=== PATIENT | female | born 1985 | race Caucasian/White ===

== ENCOUNTER 2022-06-22 06:00 | Day surgery (SDC) | payer OTHER ==
[~2022-06-22] VITALS: Ht 152.4 cm; Wt 50.3 kg
[2022-06-22] VITALS (439 sets, daily range): BP systolic 85–131; BP diastolic 46–91
--- NOTE | 2022-06-22 07:15 | NUR ---
PT HAS ARRIVED TO [facility]R SUITES WITH S/O. BOTH HAVE BEEN ESCORTED TO ROOM, AND EXPLAINED OF POC, ALL QUESTIONS HAVE BEEN ADDRESSED. PT IS A&OX3, PT ABLE TO FOLLOW COMMANDS AND MAKE HER NEEDS KNOWN. PT HAS BEEN ORIENTED TO ROOM, CALL LIGHT SYSTEM, AND FALL RISK PRECAUTION. PT HAS CALL LIGHT NEAR AND RN NEARBY. ATTACHED TO MONITORS, AND WILL CONTINUE TO MONITOR.
[2022-06-22 08:05] LABS: BASO% 0.5 % (0-3); EOS% 6.8 % (0-8); HEMATOCRIT 40.2 % (37.0-47.0); HEMOGLOBIN 12.9 g/dl (12.0-16.0); IMMATURE GRANULOCYTES 0.2 % (0.0-5.0); LYMPH% 39.6 % (15-41); MEAN CELL VOLUME 93.7 fL CALC (80.0-100.0); MEAN CORPUSCULAR HGB 30.1 pG CALC (26.0-32.0); MEAN CORPUSCULAR HGB CONC 32.1 g/dL CAL (32.0-36.0); MONO% 7.5 % (2-13); NEUT# 2.49 thou/uL (2.00-7.15); NEUT% 45.4 % (42-76); RED BLOOD COUNT 4.29 mill/uL (4.20-5.60); RED CELL DISTRI WIDTH 12.1 % (11.5-15.5)
[2022-06-22 08:12] LABS: ALKALINE PHOSPHATASE 44 u/l (38-126); ANION GAP 10 (6-22 (CALC)); BILIRUBIN, TOTAL 0.3 mg/dL (0.02-1.3); BUN 21 mg/dL (7-17); BUN/CREATININE RATIO 31 (12-20 (CALC)); CARBON DIOXIDE 27 mmol/l (22-30); CHLORIDE 103 mmol/l (95-108); CREATININE 0.7 mg/dL (0.5-1.0); GFR FOR AFR.AMER. > 60 ML/MIN (>=60 (CALC)); GFR OTHER RACES > 60 ML/MIN (>=60 (CALC)); POTASSIUM 3.6 mmol/l (3.5-5.1); SGOT/AST 26 u/l (14-36); SODIUM 136 mmol/l (137-146); TOTAL PROTEIN 6.7 g/dL (6.3-8.2)
[2022-06-22] MEDS ORDERED: XANAX1 MG PO (08:54)
--- NOTE | 2022-06-22 09:30 | NUR ---
PT HAS BEEN REASSESSED. PT R'CD BOLUS PER MD. MONITORING PT.
--- NOTE | 2022-06-22 11:40 | NUR ---
Induction Note Patient to [facility] procedure room. Time out performed at 1140. Patient placed on monitors, Nick hugger, bilateral wrist restraints applied for ET tube protection. Versed 5mg given IV push at 1141 Tourniquet applied to RIGHT arm Lidocaine 100mg given at 1142 IV push followed by Rocoronium 10mg at 1143 IV push and held for 90 seconds. Propofol bolus of 140mg given at 1145 IV push. Succinylcholine 80mg given IV push at 1146. Smooth intubation with 7.5 ETT. Positive CO2. Positive Auscultation for air exchange. Patient placed on ventilator for spontaneous ventilation. Placed on Propofol IV drip at 1147. OG inserted. Positive air on auscultation. Positive gastric content. Stomach washed at this time.
--- NOTE | 2022-06-22 12:05 | NUR ---
OG close note Stomach washed at this time. Naltrexone 50 mg with Clonidine 0.2 mg via OG tube. OG will be clamped for 45 minutes.
--- NOTE | 2022-06-22 12:50 | NUR ---
OG open note OG open at this time. Gastric content draining into drainage bag. OG to drain for 45 minutes. Propofol will be titrated down based on patient.
--- NOTE | 2022-06-22 13:35 | NUR ---
OG close note Stomach washed at this time. Naltrexone 50 mg with Clonidine 0.1 mg via OG tube. OG will be clamped for 45 minutes.
--- NOTE | 2022-06-22 15:15 | NUR ---
OG close note Stomach washed at this time. Naltrexone 50 mg with Clonidine 0.1 mg via OG tube. OG will be clamped for 45 minutes.
[2022-06-22] MEDS ORDERED: NALTREXONE50 MG PO (15:19)
[2022-06-22] MEDS ORDERED: CLONIDINE0.1 MG PO (15:20)
[2022-06-22] MEDS ORDERED: KLONOPIN2 MG PO (15:20)
--- NOTE | 2022-06-22 17:00 | NUR ---
OG close note Stomach washed at this time. Naltrexone 12.5 mg via OG tube. OG will be clamped for 45 minutes.
--- NOTE | 2022-06-22 18:17 | NUR ---
Extubation note Closing medications given Benadryl 50mg IV push, Decadron 10mg IV push,Magnesium 4 grams IV, Zofran 8mg IV push, Octreotide 100mcg SC. Stomach washed out prior to extubation. Suctioned gastric content. OG removed. Patient extubated. Propofol Discontinued. Wrist restraints removed. Nick hugger Removed. See [facility]R Moderate sedate recovery record for further notes and assessment.
--- NOTE | 2022-06-22 19:15 | NUR ---
Patient to room 284 in no acute distress. Transfer of care to Medical/Surgical [facility] RN at bedside. 2L NC placed per orders, IVF to continue at 100ml/hr. VSS. Patient resting comfortably, no adventitious breath sounds appreciated. Bed alarm set. See chart/EMAR for procedural details and assessments. Handoff of care at the time of this note.
--- NOTE | 2022-06-22 19:25 | NUR ---
PT ARRIVED TO MS @191 VIA STRETCHER, ACCOMPANIED BY ALYX BARTLETT. PT STILL DROWSY FROM PROCEDURE. VS AND ASSESSMENT COMPLETED. EVEN AND UNLABORED RESPIRATIONS; CLEAR LUNG SOUNDS UPON AUSCULTATION. O2 @ 2L VIA NC IN PLACE. IV SITES HEALTHY AND PATENT, INFUSING FLUIDS PER ORDER. BED ALARM AND SAFETY PRECAUTIONS IN PLACE. CALL LIGHT IN REACH.
--- NOTE | 2022-06-22 23:04 | NUR ---
PT STARTED TO WAKE UP, COLLECTION SYSTEMS TECHNICIAN WAS ABOUT TO GIVE SCHEDULED MEDICATIONS. PT STARTED TO GAG, VOMITED, THEN PASSED OUT. RAPID RESPONSE WAS CALLED. PT RESPONDED TO STERNAL RUB, VS STABLE. RAPID WAS CLEARED.
--- NOTE | 2022-06-23 00:30 | NUR ---
PT RESTING ON BED WITH EYES CLOSED, SUPINE POSITION. IV SITES HEALTHY AND PATENT, INFUSING FLUIDS PER ORDER. SAFETY PRECAUTIONS IN PLACE WITH CALL LIGHT IN REACH.
[2022-06-23 03:04] VITALS: BP 111/60
--- NOTE | 2022-06-23 04:53 | NUR ---
PT RESTING ON BED. NO DISTRESS OR PAIN NOTED. ADMINISTERED SCHEDULED MEDS, PT ABLE TO SWALLOW WITHOUT PROBLEMS. IV SITES HEALTHY AND PATENT. LAB IN ROOM OBTAINING BLOOD SAMPLE. BED ALARM AND SAFETY PRECAUTIONS IN PLACE. CALL LIGHT IN REACH.
[2022-06-23 05:48] LABS: ALKALINE PHOSPHATASE 43 u/l (38-126); ANION GAP 12 (6-22 (CALC)); BUN 7 mg/dL (7-17); BUN/CREATININE RATIO 14 (12-20 (CALC)); CARBON DIOXIDE 22 mmol/l (22-30); CHLORIDE 105 mmol/l (95-108); CREATININE 0.5 mg/dL (0.5-1.0); GFR FOR AFR.AMER. > 60 ML/MIN (>=60 (CALC)); GFR OTHER RACES > 60 ML/MIN (>=60 (CALC)); MAGNESIUM 2.1 mg/dL (1.6-2.3); POTASSIUM 3.6 mmol/l (3.5-5.1); SGOT/AST 26 u/l (14-36); SODIUM 135 mmol/l (137-146); TOTAL PROTEIN 6.6 g/dL (6.3-8.2)
[2022-06-23 05:50] LABS: BASO% 0.1 % (0-3); BILIRUBIN, TOTAL 0.8 mg/dL (0.02-1.3); HEMATOCRIT 37.5 % (37.0-47.0); HEMOGLOBIN 12.5 g/dl (12.0-16.0); IMMATURE GRANULOCYTES 0.3 % (0.0-5.0); LYMPH% 5.4 % (15-41); MEAN CELL VOLUME 89.7 fL CALC (80.0-100.0); MEAN CORPUSCULAR HGB 29.9 pG CALC (26.0-32.0); MEAN CORPUSCULAR HGB CONC 33.3 g/dL CAL (32.0-36.0); MONO% 2.8 % (2-13); NEUT# 9.37 thou/uL (2.00-7.15); RED BLOOD COUNT 4.18 mill/uL (4.20-5.60); RED CELL DISTRI WIDTH 11.7 % (11.5-15.5)
[2022-06-23 06:40] LABS: NEUT% 91.4 % (42-76)
--- NOTE | 2022-06-23 08:00 | NUR ---
GOT REPORT FROM FUEL CELL TEST ENGINEER NURSE. PATIENT ASSESSED, AOX2 PATIENT IS DISORIENTATED TO TIME. PATIENT COPLAINS OF BACK PAIN. MORNING MEDS GIVEN INCLUDING TORADOL FOR HER PAIN, PATIENT STILL HAS 2 IVS, ONE IN EACH WRIST. FALL PRECAUTIONS AT IN PLACE. CALL LIGHT WITH IN REACH OF PATIENT. ADVISED TO CALL IF NEEDING ANYTHING. PATIENT VERBALIZED UNDERSTANDING.
[2022-06-23 10:17] VITALS: BP 98/37
--- NOTE | 2022-06-23 10:30 | NUR ---
DR CARDENAS AT BEDSIDE WITH PATIENT ASSESSING, EDUCATING, AND ANSWERING QUESTIONS WITH THE PATIENT.
--- NOTE | 2022-06-23 17:05 | NUR ---
Discharge instructions given. Patient verbalizes understanding of same. Discharged in stable condition via Wheelchair to Home with family. All belongings sent with pt.
== END 2022-06-23 17:05 | disposition home or self-care (01) | DRG 897 ==
LOC: MS2 06:00 → ANR 06:00
PROVIDERS: ATTEND Anesthesiology Critical Care Medicine
DX: F11.20 Opioid dependence, uncomplicated (principal)
CPT/HCPCS: J0131; J2354; J3475